=== PATIENT | male | born 1955 | race Caucasian/White ===

== ENCOUNTER 2017-01-11 13:43 | Emergency (ER) | payer OTHER ==
--- NOTE | 2017-01-11 13:56 | EDPHY ---
H & P Time Seen by Provider: 01/11/17 13:46 HPI/ROS: CHIEF COMPLAINT: Limited trauma activation, right knee injury, head trauma, neck pain HISTORY OF PRESENT ILLNESS: Patient is brought in his limited trauma activation. The patient was walking down a flight of stairs when he felt a pop in his right knee. The patient lost his ability to weightbear and subsequently fell down approximately 4 stairs. The patient did strike his head on a concrete wall during the fall. The patient did not lose consciousness. In the ED he denies headache. He has complaints of mild midline neck pain. The patient denies any acute numbness or weakness in the upper extremity. The patient does have some tenderness and pain in his left proximal tib-fib area. The patient is unable to extend his right knee and has pain below the right patella. The patient denies any associated chest pain, difficulty breathing or abdominal pain. Patient denies any anticoagulant use. REVIEW OF SYSTEMS: A comprehensive 10 point review of systems is otherwise negative aside from elements mentioned in the history of present illness. Source: Patient Exam Limitations: No limitations - Personal History Current Tetanus/Diphtheria Vaccine: Yes - Medical/Surgical History PMH: Past medical history: Hypothyroidism - Family History Significant Family History: No pertinent family hx - Social History Smoking Status: Never smoked - Physical Exam Exam: General Appearance: Alert, no distress Head: Abrasion noted to left temporal lobe, no hematoma, no crepitus Neck: Mild tenderness to palpation noted in the mid cervical spine, no palpable step-off or deformity. Eyes: Pupils equal, round, reactive ENT, Mouth: No hemotympanum, no oral trauma Respiratory: No chest wall tender, subcutaneous air, lungs clear bilaterally Cardiovascular: Regular rate and rhythm Abdomen: Abdomen is soft and nontender, pelvis stable Skin: No lacerations, No abrasion Back: No midline T/L/S pain Extremities: Tenderness to palpation right patella, palpable defect in the quadriceps tendon, lack of extensor mechanism noted in the right lower extremity. Tenderness to palpation noted in the left proximal tibia. Neurological: A&Ox3, normal motor function, normal sensory exam Constitutional: Initial Vital Signs Temperature (C) 36.7 C 01/11/17 13:50 Heart Rate 74 01/11/17 13:50 Respiratory Rate 18 01/11/17 13:50 Blood Pressure 131/76 H 01/11/17 13:50 O2 Sat (%) 94 07/28/17 13:50 O2 Delivery Mode Room Air Allergies/Adverse Reactions: Penicillins Allergy (Verified 01/11/17 13:55) Sulfa (Sulfonamide Antibiotics) Allergy (Verified 01/11/17 13:55) Home Medications: Medication Instructions Recorded Hydrocodone/APAP 5/325 [[place] 1 - 2 each PO Q6 PRN #20 tab 01/11/17 5/325] IBUPROFEN 01/11/17 Prozac 10 MG (*) 01/11/17 Medical Decision Making - Diagnostics Imaging Results: Imaging Impressions Knee X-Ray 01/11/17 00:00 Impression: 1. Findings suspicious for quadriceps tendon tear above the patella with small bulge and fracture fragment noted and depression of the position of the patella. 2. Left total knee replacement in good position and alignment without loosening. Findings discussed with Erasmo Layton at 15:23 hour, 01/11/2017. Cervical Spine CT 01/11/17 13:53 Impression: 1. No acute osseous abnormality seen about the cervical spine. 2. Anterior cervical fusion plate in good position from C3 through C6 with residual screws from prior removed plate on the right at C3-C4 and on the left C5. 3. Underlying moderate right-sided neural foraminal stenosis at C4-C5 and at C5- C6. Findings discussed with Erasmo Layton at 14:39 hour, 01/11/2017. Knee X-Ray 01/11/17 13:53 Impression: 1. Findings suspicious for quadriceps tendon tear above the patella with small bulge and fracture fragment noted and depression of the position of the patella. 2. Left total knee replacement in good position and alignment without loosening. Findings discussed with Erasmo Layton at 15:23 hour, 01/11/2017. ED Course/Re-evaluation: The patient presents to the ED after mechanical fall. The patient likely sustained a quadriceps tendon rupture as an inciting event. The patient then fell sustaining a small abrasion to his head. The patient was noted to have minimal tenderness to palpation in his lower cervical spine. He is neurologically intact. The patient was taken for CT scan of the C-spine which demonstrates no evidence of an acute fracture and intact hardware from his prior cervical fusion. The patient's left knee x-ray demonstrates an intact knee prosthesis without evidence of periprosthetic fracture by my interpretation. The patient's right knee x-ray demonstrates a joint effusion with fairly significant DJD. The patient does have evidence of patella baja consistent with his quadriceps tendon rupture. The patient will be placed in a straight leg immobilizer and attempted ambulation will be made with crutches. The patient does have a orthopedic surgeon at [facility] he would like to follow up with. He is also given the contact information of our on-call orthopedic surgeon Dr. Buddy Murcia. Differential Diagnosis: Differential diagnosis considered includes intracranial hemorrhage, cervical spine fracture, quadriceps tendon rupture - Data Points Laboratory Results: Laboratory Results 01/11/17 13:48 01/11/17 13:48 01/11/17 01/11/17 01/11/17 13:48 13:48 13:48 WBC 9.00 10^3/uL 10^3/uL (3.80-9.50) RBC 5.12 10^6/uL 10^6/uL (4.40-6.38) Hgb 11.6 g/dL L g/dL (13.7-17.5) Hct 38.3 % L % (40.0-51.0) MCV 74.8 fL L fL (81.5-99.8) MCH 22.7 pg L pg (27.9-34.1) MCHC 30.3 g/dL L g/dL (32.4-36.7) RDW 19.9 % H % (11.5-15.2) Plt Count 359 10^3/uL 10^3/uL (150-400) MPV 10.1 fL fL (8.7-11.7) Neut % (Auto) 62.4 % % (39.3-74.2) Lymph % (Auto) 25.1 % % (15.0-45.0) [place] % (Auto) 8.4 % % (4.5-13.0) Eos % (Auto) 2.4 % % (0.6-7.6) Baso % (Auto) 1.3 % % (0.3-1.7) Nucleat RBC Rel Count 0.0 % % (0.0-0.2) Absolute Neuts (auto) 5.60 10^3/uL 10^3/uL (1.70-6.50) Absolute Lymphs (auto) 2.26 10^3/uL 10^3/uL (1.00-3.00) Absolute Monos (auto) 0.76 10^3/uL 10^3/uL (0.30-0.80) Absolute Eos (auto) 0.22 10^3/uL 10^3/uL (0.03-0.40) Absolute Basos (auto) 0.12 10^3/uL H 10^3/uL (0.02-0.10) Absolute Nucleated RBC 0.00 10^3/uL 10^3/uL (0-0.01) Immature Gran % 0.4 % % (0.0-1.1) Immature Gran # 0.04 10^3/uL 10^3/uL (0.00-0.10) PT 12.8 SEC SEC (12.0-15.0) INR 0.97 (0.83-1.16) APTT 30.2 SEC SEC (23.0-38.0) Sodium 139 mEq/L mEq/L (134-144) Potassium 4.1 mEq/L mEq/L (3.5-5.2) Chloride 103 mEq/L mEq/L (97-110) Carbon Dioxide 20 mEq/l L mEq/l (22-31) Anion Gap 16 mEq/L mEq/L (8-16) BUN 12 mg/dL mg/dL (7-23) Creatinine 1.0 mg/dL mg/dL (0.7-1.3) Estimated GFR > 60 Glucose 93 mg/dL mg/dL (70-100) Calcium 9.3 mg/dL mg/dL (8.5-10.4) Medications Given: Discontinued Medications Morphine Sulfate (Morphine) 4 mg IVP EDNOW ONE Stop: 01/11/17 15:00 Last Admin: 01/11/17 15:10 Dose: 4 mg Departure - Departure Disposition: Home, Routine, Self-Care Clinical Impression: Rupture of right quadriceps tendon, Cervical strain, acute Condition: Good Instructions: Knee Immobilizer (ED) Additional Instructions: 1. Use crutches and wear knee immobilizer until seen by Orthopedic surgery. You can follow up with your regular orthopedic surgeon at [facility] or contact Dr. Murcia who is on-call for our orthopedic surgeons. 2. Please return to the emergency department for any severe headache, vomiting , worsening symptoms or other concerns. 3 Take Ibuprofen or Motrin 600 mg by mouth three times a day. 4. Elberon as needed for severe pain Referrals: Buddy Murcia MD [Medical Doctor] - As per Instructions Prescriptions: Hydrocodone/APAP 5/325 [[place] 5/325] 1 - 2 each PO Q6 PRN #20 tab PRN Reason: for pain
[2017-01-11 14:01] VITALS: O2SAT 94
[2017-01-11 15:18] LABS: % IMMATURE GRANULYOCYTES 0.4 % (0.0-1.1); ABSOLUTE IMMATURE GRANULOCYTES 0.04 10^3/uL (0.00-0.10); ADD DIFF? NO; ADD MORPH? NO; ADD SCAN? NO; ATYPICAL LYMPHOCYTE FLAG 0 (0-99); FRAGMENT RBC FLAG 20 (0-99); HEMATOCRIT 38.3 % (40.0-51.0); HEMOGLOBIN 11.6 g/dL (13.7-17.5); LEFT SHIFT FLG 0 (0-99); LIPEMIA HEMOLYSIS FLAG 80 (0-99); MEAN CELL HEMOGLOBIN 22.7 pg (27.9-34.1); MEAN CELL HEMOGLOBIN CONCENTR. 30.3 g/dL (32.4-36.7); MEAN CELL VOLUME 74.8 fL (81.5-99.8); MEAN PLATELET VOLUME 10.1 fL (8.7-11.7); PLATELET CLUMPS FLAG 0 (0-99); PLATELET COUNT 359 10^3/uL (150-400); RED BLOOD CELL COUNT 5.12 10^6/uL (4.40-6.38); RED CELL DISTRIBUTION WIDTH 19.9 % (11.5-15.2)
[2017-01-11 15:31] LABS: ANION GAP 16 mEq/L (8-16); CALCIUM 9.3 mg/dL (8.5-10.4); CARBON DIOXIDE 20 mEq/l (22-31); CHLORIDE 103 mEq/L (97-110); GLOMERULAR FILTRATION RATE > 60; GLUCOSE 93 mg/dL (70-100); POTASSIUM 4.1 mEq/L (3.5-5.2); SODIUM 139 mEq/L (134-144)
[2017-01-11 15:33] LABS: APTT 30.2 SEC (23.0-38.0); INR 0.97 (0.83-1.16); PROTIME(PATIENT) 12.8 SEC (12.0-15.0)
[2017-01-11 17:09] VITALS: BP 118/75; PULSE 66; RESP 16; TEMP 97.5
== END 2017-01-11 17:00 | disposition home or self-care (01) ==
LOC: EDUNIT#
DX: S86.811A Strain of other muscle(s) and tendon(s) at lower leg level, right leg, initial encounter (principal); S16.1XXA Strain of muscle, fascia and tendon at neck level, initial encounter; W10.9XXA Fall (on) (from) unspecified stairs and steps, initial encounter; Y93.01 Activity, walking, marching and hiking
CPT/HCPCS: 96374; L1830